=== PATIENT | male | born 1985 | race Caucasian/White ===

== ENCOUNTER 2023-08-10 12:25 | Emergency (ER) | payer OTHER, SELFPAY ==
[2023-08-10 12:37] VITALS: BP 156/96; PULSE 95; RESP 18; TEMP 37.1; O2SAT 96; BMI 31.6
--- NOTE | 2023-08-10 13:17 | PC.NURSE ---
REG CALLED. PT LEFT WITHOUT BEING SEEN.
== END 2023-08-10 13:17 | disposition left against medical advice (07) ==
PROVIDERS: Emergency Provider Emergency Medicine; PCP Family Medicine
DX: Z53.21 Procedure and treatment not carried out due to patient leaving prior to being seen by health care provider (principal)

== ENCOUNTER 2024-12-26 11:55 | Emergency (ER) | payer BC, SELFPAY ==
[2024-12-26 12:01] VITALS: BP 130/82; PULSE 93; TEMP 37; O2SAT 95; BMI 34.0
[2024-12-26 12:08] VITALS: PULSE 80
--- NOTE | 2024-12-26 12:58 | ECG_ITS ---
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
--- NOTE | 2024-12-26 13:34 | ED_ITS ---
HPI - Dizziness General Chief Complaint: Dizziness Stated Complaint: VERTIGO Time Seen by Provider: 12/26/24 13:33 Source: patient Mode of arrival: walk-in Limitations: no limitations History of Present Illness HPI Narrative: Patient is a 39-year-old male with a 3-day history of dizziness. He describes sensation of dizziness as vertigo. He states he feels he is spinning. He has had similar episodes in the past but states it has not been for 3 or 4 years. He believes he was at [facility] for the most recent episode but does not believe he has ever had a CAT scan done. He states he has had 2 episodes of vomiting today and believes his stool is odorous but he has not had any significant diarrhea or bloody stool. He states he has pressure in the right ear and some ringing in both of his ears. He has not had a fever. No significant cough or congestion. No sick contacts in the home. No medications taken prior to arrival. EKG was performed from triage. Related Data Previous Rx's ?Medication ?Instructions ?Recorded meclizine 25 mg chewable tablet 25 mg PO QID PRN dizziness #12 tabs 12/26/24 (Antivert) methylprednisolone 4 mg tablets in See Rx Instructions .Route 12/26/24 a dose pack (Medrol (Ayad)) .COMPLEX #21 ea ondansetron 4 mg disintegrating 4 mg PO Q6H PRN nausea and 12/26/24 tablet vomiting #12 tabs Allergies Allergy/AdvReac Type Severity Reaction Status Date / Time azithromycin (From Zithromax) Allergy Unknown Rash Verified 12/26/24 12:00 Penicillins Allergy Unknown Rash Verified 12/26/24 12:00 Review of Systems ROS Constitutional Denies: fever or chills Ears, nose, mouth, and throat Denies: throat pain Cardiovascular Reports: palpitations Respiratory Denies: shortness of breath or cough Gastrointestinal Reports: nausea, vomiting and diarrhea; Denies: abdominal pain Musculoskeletal Denies: back pain Integumentary/Breast Denies: rash Neurological Reports: headache, dizziness and vertigo; Denies: numbness in extremities or weakness in extremities Hematologic/Lymphatic Denies: easy bruising or easy bleeding PFSH PFSH Social History Little interest or pleasure in doing things: not at all Feeling down, depressed, or hopeless: not at all Exam Narrative Exam Narrative: Gen.: Awake, alert, in no distress Head: Normocephalic, atraumatic ENT: Moist mucous membranes, bilateral TMs clear, no pharyngeal erythema Respiratory: No respiratory distress, lungs clear bilaterally Cardio: Regular rate and rhythm Gastrointestinal: Abdomen is soft, nondistended and nontender to palpation Extremities: Moves extremities equally, no injuries noted Psych: Normal mood and affect Neuro: No focal neuro deficit Skin: Warm, dry, intact Constitutional Vital Signs, click to edit/add: Last Vital Signs Temp 98.6 F 12/26/24 12:01 Pulse 78 12/26/24 14:53 Resp 18 12/26/24 14:53 BP 156/89 H 12/26/24 14:53 Pulse Ox 95 12/26/24 14:53 O2 Del Method Room Air 12/26/24 12:01 Course Vital Signs Vital signs: Vital Signs Temperature 98.6 F 12/26/24 12:01 Pulse Rate 93 H 12/26/24 12:01 Respiratory Rate 18 12/26/24 12:01 Blood Pressure 130/82 12/26/24 12:01 Pulse Oximetry 95 12/26/24 12:01 Oxygen Delivery Method Room Air 12/26/24 12:01 Temperature 98.6 F 12/26/24 12:01 Pulse Rate 78 12/26/24 14:53 Respiratory Rate 18 12/26/24 14:53 Blood Pressure 156/89 H 12/26/24 14:53 Pulse Oximetry 95 12/26/24 14:53 Oxygen Delivery Method Room Air 12/26/24 12:01 MDM - Dizziness MDM Narrative Medical decision making narrative: Patient treated with IV fluids, steroids, Antivert, Zofran. He reported improvement of symptoms. CT of the brain is unremarkable, laboratory studies reviewed and noted within normal limits and EKG is unremarkable as well. Patient is resting comfortably on reevaluation. He is given a work note, Antivert, Zofran and steroid taper for home. Follow-up with PCP and return to the emergency department if symptoms change or worsen. SUPERVISED APC VISIT, PHYSICIAN ATTESTATION: Based on the medical record the care appears appropriate. ? Medical Records Attestation: I reviewed the patient's medical records. Lab Data Attestation: I reviewed the patient's lab results. Labs: Lab Results 12/26/24 Range/Units 13:56 WBC 8.5 (4.0-11.0) 10^3/uL RBC 5.05 (4.70-6.10) 10^6/uL Hgb 16.0 (14.0-18.0) g/dL Hct 46.6 (42.0-54.0) % MCV 92.3 (80.0-94.0) fL MCH 31.7 (25.9-34.0) pg MCHC 34.3 (29.9-35.2) g/dL RDW 12.1 (11.0-15.0) % Plt Count 234 (150-450) 10^3/uL MPV 10.2 (9.5-13.5) fL Neut % (Auto) 59.7 (43.0-75.0) % Lymph % (Auto) 32.2 (20.5-60.0) % [place] % (Auto) 6.2 (1.7-12.0) % Eos % (Auto) 1.1 (0.9-7.0) % Baso % (Auto) 0.4 (0.2-2.0) % Neut # (Auto) 5.1 (1.4-6.5) 10^3/uL Lymph # (Auto) 2.8 (1.2-3.8) 10^3/uL [place] # (Auto) 0.5 (0.3-0.8) 10^3/uL Eos # (Auto) 0.1 (0.0-0.7) 10^3/uL Baso # (Auto) 0.0 (0.0-0.1) 10^3/uL Abs Immat Gran (auto) 0.03 (0.00-0.03) 10^3/uL Imm/Tot Granulo (auto) 0.4 (0.0-0.5) % PT 10.9 (9.0-11.6) sec INR 1.03 Sodium 137 (136-145) mmol/L Potassium 3.9 (3.5-5.1) mmol/L Chloride 104 (98-107) mmol/L Carbon Dioxide 26.1 (21.0-32.0) mmol/L Anion Gap 10.8 BUN 12.0 (7.0-18.0) mg/dL Creatinine 1.14 (0.70-1.30) mg/dL Est GFR ( Amer) >60 (>=60 mL/min/1.73m^2) Est GFR (Non-Af Amer) >60 (>=60 mL/min/1.73m^2) BUN/Creatinine Ratio 10.5 Glucose 99 (74-106) mg/dL Lactate 1.2 (0.4-2.0) mmol/L Calcium 8.7 (8.5-10.1) mg/dL Total Bilirubin 0.8 (0.2-1.0) mg/dL AST 21 (15-37) U/L ALT 41 (16-63) U/L Alkaline Phosphatase 85 (46-116) U/L Troponin I High Sens 4.4 (4.0-76.1) pg/mL Total Protein 7.6 (6.4-8.2) g/dL Albumin 4.1 (3.4-5.0) g/dL Globulin 3.5 g/dL Albumin/Globulin Ratio 1.2 TSH 0.859 (0.358-3.740) uIU/mL Imaging Data CT scan - head: Attestation: I have reviewed the pertinent imaging results. ECG Data Attestation: I personally reviewed and interpreted this ECG as follows: (Normal sinus rhythm at a rate of 80, no acute ST elevation or ectopy. EKG reviewed by attending physician) Discharge Plan Discharge Chief Complaint: Dizziness Clinical Impression: Dizziness Patient Disposition: Home, Self-Care Time of Disposition Decision: 15:55 Condition: Good Prescriptions / Home Meds: New methylprednisolone [Medrol (Ayad)] 4 mg tablets,dose pack See Rx Instructions .ROUTE .COMPLEX Qty: 21 0RF Rx Instructions: Taper as directed ondansetron 4 mg tablet,disintegrating 4 mg PO Q6H PRN (Reason: nausea and vomiting) Qty: 12 0RF meclizine [Antivert] 25 mg tablet,chewable 25 mg PO QID PRN (Reason: dizziness) Qty: 12 0RF Print Language: Bulgarian Instructions: Vertigo (ED) Referrals: Physician,Non-Staff, MD [Primary Care Provider] - 1 week
[2024-12-26] MEDS: MECLIZINE HCL 12.5 MG TABLET 25 MG PO (13:59)
[2024-12-26] MEDS: ONDANSETRON PF 4 MG/2 ML VIAL IV (13:59)
[2024-12-26] MEDS: DEXAMETHASONE SOD PHOS 10 MG/ML VIAL IV (13:59)
[2024-12-26] MEDS: 0.9 % SODIUM CHLORIDE 1,000 ML 1000 ML IV (14:00)
[2024-12-26 14:07] LABS: Basophils Percent Auto 0.4 % (0.2-2.0); Eosinophils Absolute Auto 0.1 10^3/uL (0.0-0.7); Eosinophils Percent Auto 1.1 % (0.9-7.0); Hematocrit 46.6 % (42.0-54.0); Immature Granulocytes Abs Auto 0.03 10^3/uL (0.00-0.03); Immature Granulocytes Pct Auto 0.4 % (0.0-0.5); Lymphocytes Absolute Auto 2.8 10^3/uL (1.2-3.8); Lymphocytes Percent Auto 32.2 % (20.5-60.0); Mean Corpuscular HGB Conc 34.3 g/dL (29.9-35.2); Mean Corpuscular Hemoglobin 31.7 pg (25.9-34.0); Mean Corpuscular Volume 92.3 fL (80.0-94.0); Mean Platelet Volume 10.2 fL (9.5-13.5); Monocytes Absolute Auto 0.5 10^3/uL (0.3-0.8); Monocytes Percent Auto 6.2 % (1.7-12.0); Neutrophils Absolute Auto 5.1 10^3/uL (1.4-6.5); Neutrophils Percent Auto 59.7 % (43.0-75.0); Platelet Count 234 10^3/uL (150-450); Red Blood Count 5.05 10^6/uL (4.70-6.10); Red Cell Distribution Width 12.1 % (11.0-15.0); White Blood Count 8.5 10^3/uL (4.0-11.0)
[2024-12-26 14:18] LABS: INR 1.03; Prothrombin Time 10.9 sec (9.0-11.6)
[2024-12-26 14:25] LABS: Alanine Aminotransferase 41 U/L (16-63); Albumin Globulin Ratio 1.2; Albumin Level 4.1 g/dL (3.4-5.0); Alkaline Phosphatase 85 U/L (46-116); Anion Gap 10.8; Aspartate Amino Transferase 21 U/L (15-37); BUN Creatinine Ratio 10.5; Bilirubin Total 0.8 mg/dL (0.2-1.0); Calcium 8.7 mg/dL (8.5-10.1); Carbon Dioxide 26.1 mmol/L (21.0-32.0); Chloride 104 mmol/L (98-107); Estimated GFR (African America >60 (>=60 mL/min/1.73m^2); Estimated GFR (Non-African Ame >60 (>=60 mL/min/1.73m^2); Globulin 3.5 g/dL; Glucose 99 mg/dL (74-106); Potassium 3.9 mmol/L (3.5-5.1); Sodium 137 mmol/L (136-145); Total Protein 7.6 g/dL (6.4-8.2)
[2024-12-26 14:27] LABS: Lactate/Lactic Acid 1.2 mmol/L (0.4-2.0)
[2024-12-26 14:33] LABS: Thyroid Stimulating Hormone 0.859 uIU/mL (0.358-3.740); Troponin I High Sensitivity 4.4 pg/mL (4.0-76.1)
[2024-12-26 14:53] VITALS: BP 156/89; PULSE 78; O2SAT 95
--- NOTE | 2024-12-26 14:54 | PC.NURSE ---
pt states his nausea has improved and he doesnt feel at tired'
== END 2024-12-26 16:14 | disposition home or self-care (01) ==
PROVIDERS: Physician Assistant; Emergency Provider Student in an Organized Health Care Education/Training Program
DX: R42 Dizziness and giddiness (principal); R11.2 Nausea with vomiting, unspecified
CPT/HCPCS: 36415; 70450; 80053; 83605; 84443; 84484; 85025; 85610; 93005; 96361; 96374; 96375; 99285; J1100; J2405